=== PATIENT | male | born 1960 | race Caucasian/White ===

== ENCOUNTER 2019-03-12 14:28 | Emergency (ER) | payer BC ==
[~2019-03-12] VITALS: Ht 167.6 cm; Wt 72.3 kg
[2019-03-12 14:31] VITALS: Ht 167.6 cm; Wt 72.3 kg
[2019-03-12] MEDS ORDERED: VERAPAMIL HCL40 MG (14:32)
[2019-03-12 15:02] LABS: BASOPHILS 0.2 % (0-2); EOSINOPHILS 0.7 % (0-7); HEMATOCRIT 40.8 % (42.0-54.0); HEMOGLOBIN 14.3 g/dL (13.5-17.5); IMMATURE GRANULOCYTES 0.7 % (0-5); LYMPHOCYTES 20.6 % (15-50); MCH 31.6 pg (26.0-34.0); MCV 90.3 fL (80.0-100.0); NEUTROPHILS 68.8 % (40-80); PLATELET COUNT 244 10x3/uL (130-400); RBC 4.52 10x6/uL (4.20-6.10); RDW 13.4 % (11.5-14.5); WBC 6.1 10x3/uL (4.8-10.8)
[2019-03-12 15:10] LABS: APTT 29.6 SECONDS (22.8-39.4); INR 0.99 (0.85-1.17); PROTIME 12.6 SECONDS (11.6-15.0)
[2019-03-12 15:22] LABS: ALBUMIN 3.8 g/dL (3.4-5.0); ALKALINE PHOSPHATASE 73 U/L (46-116); ALT (SGPT) 19 U/L (10-68); BILIRUBIN - TOTAL 0.28 mg/dL (0.2-1.3); CALC OSMOLALITY 283 mosm/kg (275-300); CALCIUM 8.3 mg/dL (8.5-10.1); CARBON DIOXIDE 24.3 mmol/L (21.0-32.0); CHLORIDE - SERUM 107 mmol/L (98-107); CREATININE - SERUM 1.3 mg/dL (0.6-1.3); GLUCOSE 99 mg/dL (74-106); POTASSIUM - SERUM 3.4 mmol/L (3.5-5.1); PROTEIN - SERUM 7.6 g/dL (6.4-8.2); SODIUM 141 mmol/L (136-145); UREA NITROGEN 22 mg/dL (7-18); eGFR NON AFRICAN AMERICAN 60 mL/min (90-120)
[2019-03-12 15:33] LABS: CKMB 1.2 U/L (0.0-3.6); CREATINE KINASE 117 UL (21-232); MAGNESIUM - SERUM 1.9 mg/dL (1.8-2.4)
[2019-03-12 15:35] LABS: TROPONIN-I < 0.017 ng/mL (0.000-0.060)
[2019-03-12 19:40] VITALS: BP 181/103
== END 2019-03-12 19:40 | disposition home or self-care (01) ==
LOC: D.ER 14:28
PROVIDERS: Family Medicine
DX: R06.09 Other forms of dyspnea (principal)

== ENCOUNTER → 2019-04-05 09:55 | Outpatient (CLI) | payer BC ==
[2019-03-12 14:31] VITALS: BMI 25.7
[~2019-04-05 09:55] MED LIST: BAYER CHEWABLE81 MG PO; CALAN SR180 MG PO; PLAVIX75 MG PO; PRAVACHOL40 MG PO; VERAPAMIL HCL40 MG
[2019-04-17 13:10] VITALS: BMI 25.8
--- NOTE | 2019-04-18 11:29 | ST ---
PATIENT:DONNA VASQUEZ JR MEDICAL RECORD: [id number] SEX: M LOCATION:[facility] ORDER #: ADMISSION DATE: 04/05/19 AGE OF PATIENT: 58 REFERRING PHYSICIAN: INTERPRETING PHYSICIAN: THOMAS HALL MD DATE OF SERVICE: 04/05/2019 Exercise Stress Test INDICATIONS: Angina. He was exercised on standard Scot protocol for 6 minutes achieving greater than 85% target heart rate response with shortness of breath, angina and significant ST depression in stage II. OVERALL IMPRESSION: This is an abnormal nuclear stress test positive for inducible ischemia by symptomatology and EKG criteria. Most likely, there is hemodynamically significant coronary artery disease present. TRANSINT:[id number] Voice Confirmation ID: [id number] DOCUMENT ID: [id number] THOMAS HALL MD at 1129 CC: [id number] DICTATION DATE: 04/06/19 0945 PRINTING ROLLER POLISHER: 04/06/19 2354 DEP CLI 04/05/19 [address] [address] [place] [address]
== END | disposition home or self-care (01) ==
LOC: D.HCCARDIO 09:55
PROVIDERS: ATTEND Internal Medicine Interventional Cardiology
DX: I20.9 Angina pectoris, unspecified (principal)

== ENCOUNTER 2019-04-17 09:02 | Outpatient (CLI) | payer BC ==
[~2019-04-17] VITALS: Ht 167.6 cm; Wt 72.7 kg
--- NOTE | ~2019-04-17 | HEMODYNAMI ---
PATIENT:DONNA VASQUEZ JR MEDICAL RECORD: [id number] : 56 LOCATION:[facility] ADMISSION DATE: 04/17/19 Generatedon:04/17/201912:27 Patient name: DONNA VASQUEZ Patient #: [id number] SSN: : 1960 Date of study: 04/17/2019 Page: Of Hemodynamic Procedure Report Patient Data Patient Demographics Procedure consent was obtained First Name: DONNA Gender: Male Last Name: PEDRO Suffix: Patient #: [id number] : 1960 Age: 58 year(s) Accession #: Race: Unknown [id number] Additional ID: [id number] Contact details Address: [address] [place] [address] State: [place] City: [place] Zip code: [address] Past Medical History Allergies: No known allergies Admission Admission Data Admission Date: 04/17/2019 Admission Time: 9:02 Arrival Date: 04/17/2019 Arrival Time: 0:00 Height (in.): 65.75 BSA: 1.82 (m2) Height (cm.): 167 BMI: 26.18 (kg/m2) Weight (lbs.): 160.94 Weight (kg.): 73 Lab Results Lab Result Date: 04/17/2019 Lab Result Time: 0:00 Biochemistry Name Units Result Min Max BUN mg/dl 24 --(----)-* 7 18 Creatinine mg/dl 1.3 --(---*)-- 0.6 1.3 eGFR ml/min 60 *-(----)-- 90 120 NONAFRICAN CBC Name Units Result Min Max Hematocrit % 40.5 -*(----)-- 42 54 Hemoglobin g/dl 14.3 --(*---)-- 13.5 17.5 Procedure Procedure Types Cath Procedure Diagnostic Procedure [facility] w/Coronaries PCI Procedure Coronary Stent Coronary Stent Initial Procedure Description Procedure Date Procedure Date: 04/17/2019 Procedure Start Time: 12:06 Procedure End Time: 12:25 Procedure Staff Name Function Oleg Herzog MD Performing Physician Ciera Barrett RT Monitor Trang Rosado RT Scrub [place] Rob RN Nurse Dajuan Capellan RN Pediatric Physical Therapy Assistant Procedure Data Cath Procedure Fluoroscopy Diagnostic fluoroscopy Total fluoroscopy Time: 3.3 time: 3.3 min min Diagnostic fluoroscopy Total fluoroscopy dose: 487 dose: 487 mGy mGy Contrast Material Contrast Material Type Amount (ml) Isovue 300 79 Entry Location Entry Primary Successful Side Size Upsize Upsize Entry Closure Cooper ccessful Closure Location (Fr) 1 (Fr) 2 (Fr) Remarks Device Remarks Radial Right 6 Fr Mechanical artery Short Compression Estimated blood loss: 10 ml Diagnostic catheters Device Type Used For End Catheter Placement DIAGNOSTIC [place] 110cm 5 Procedure Fr catheter ([id number]) Procedure Complications No complications Procedure Medications Medication Administration Route Dosage 0.9% NaCl I.V. 100 ml/hr Oxygen etCO2 Nasal cannula 2 l/min Heparin Flush Bag added to field 2 bags (1000units/500ml NS) Lidocaine 2% added to field 20 Radial Cocktail added to field 1 syringe (Verapamil 2mg/Nitro 400mcg/Heparin 1500units) Radial Cocktail I.A. 1 syringe (Verapamil 2mg/Nitro 400mcg/Heparin 1500units) Heparin Bolus I.V. 4000 units Integrilin (Bolus I.V. 6.8 ml 2mg/ml) Integrilin (Bolus wasted 3.2 ml 2mg/ml) Plavix P.O. 600 mg Hemodynamics Rest BSA: 1.82 (m2) HGB: 14.3 (g/dl) O2 Consumption: Estimated: 203.91 (ml/min) O2 Co nsumption indexed: Estimated:112.04 (ml/min/m) Heart Rate: 56 (bpm) Snapshots Pre Cath Intra NCS Post Cath Vital Signs Time Heart Resp SPO2 etCO2 NIBP Rhythm Pain Sedation Rate (ipm) (%) (mmHg) (mmHg) Status Level (bpm) 11:57:47 59 17 95 13.5 133/85(97) NSR 0 (11) 10(A) , No pain 12:02:01 58 12 94 38.4 121/76(90) NSR 0 (11) 10(A) , No pain 12:06:11 53 15 92 41.4 132/73(85) NSR 0 (11) 10(A) , No pain 12:10:29 57 15 94 28.6 113/63(81) NSR 0 (11) 9(A) , No pain 12:14:39 52 13 92 0 111/62(83) NSR 0 (11) 9(A) , No pain 12:18:45 52 16 95 32.4 111/73(91) NSR 0 (11) 10(A) , No pain 12:23:44 48 15 98 32.4 Measuring NSR 0 (11) 10(A) , No pain 12:23:50 48 16 96 27.1 130/72(94) NSR 0 (11) 10(A) , No pain Medications Time Medication Route Dose Verified Delivered Reason Not es Effectiveness by by 12:01:08 0.9% NaCl I.V. 100 [place] Per physician ml/hr Darron Rob RN RN 12:01:19 Oxygen etCO2 2 l/min [place] for low 02 sats Nasal Darron Rob cannula RN RN 12:01:29 Heparin Flush added 2 bags [place] used for Bag to Darron Rob procedure (1000units/500ml field RN RN NS) 12:01:39 Lidocaine 2% added 20ml [place] for local to vial Darron Rob anesthetic RN RN 12:01:52 Radial Cocktail added 1 [place] used for (Verapamil to syringe Darron Rob procedure 2mg/Nitro field RN RN 400mcg/Heparin 1500units) 12:08:28 Radial Cocktail I.A. 1 [place] Oleg for (Verapamil syringe Darron Herzog MD vasodilation 2mg/Nitro RN 400mcg/Heparin 1500units) 12:15:23 Heparin Bolus I.V. 4000 [place] for units Darron Rob anticoagulation RN RN 12:16:53 Integrilin I.V. 6.8 ml [place] for (Bolus 2mg/ml) Darron Rob antiplatelet RN RN therapy 12:17:04 Integrilin wasted 3.2 ml [place] to sharp's (Bolus 2mg/ml) Darron Rob RN RN 12:19:47 Plavix P.O. 600 mg [place] for Darron Rob antiplatelet RN RN therapy Procedure Log Time Note 11:39:04 Signed procedure consent form obtained from patient. 11:39:06 Procedure Status Elective Heart Cath (OP). 11:39:08 Time tracking: Regular hours (M-F 7:00 - 5:00) 11:39:12 Plan of Care:Hemodynamics will remain stable., Cardiac rhythm will remain stable., Comfort level will be maintained., Respiratory function will remain adequate., Patient/ family verbilizes understanding of procedure., Procedure tolerated without complication., Recovers from procedure without complications.. 11:39:33 H&P Date Dictated: 03/29/2019 Within 30 days and on chart., H&P Addendum completed by physician on day of procedure. (MUST COMPLETE FOR ALL OUTPATIENTS). 11:40:10 Dajuan Capellan RN sent for patient. Start room use. 11:41:51 Patient allergic to No known allergies 11:43:43 Lab Result : BUN 24 mg/dl 11:43:43 Lab Result : eGFR NONAFRICAN 60 ml/min 11:43:43 Lab Result : Creatinine 1.3 mg/dl 11:43:43 Lab Result : Hemoglobin 14.3 g/dl 11:43:43 Lab Result : Hematocrit 40.5 % 11:43:55 Patient Weight : 160.94 lbs 11:44:00 Patient Height : 65.75 inches 11:44:05 Arrival Date: 04/17/2019 12:00:00 AM 11:47:04 Patient received from Pre/Post Procedure Room to CCL 1 Alert and oriented. Tansferred to table in Supine position. 11:47:05 Warm blankets applied, and esme hugger turned on for patient comfort. 11:47:06 Correct patient and procedure confirmed by team. 11:47:06 ECG and BP/O2 sat monitors applied to patient. 11:56:29 Rhythm: sinus bradycardia 11:56:41 Vital chart was started 11:56:43 Full Disclosure recording started 11:56:44 Baseline sample Acquired. 11:56:47 Pre-procedure instructions explained to patient. 11:56:47 Pre-op teaching completed and patient verbalized understanding. 11:56:48 Family in patients room. 11:56:50 Patient NPO since Midnight. 11:56:52 Is patient on blood thinner?No 11:56:54 Is the patient allergic to Iodine/contrast media? No. 11:56:56 Patient diabetic? No. 11:56:59 Previous problem with sedation/anesthesia? No ? 11:57:00 Snore? Yes 11:57:01 Sleep apnea? No 11:57:02 Deviated septum? No 11:57:03 Opens mouth fully? Yes 11:57:05 Sticks out tongue? Yes 11:57:37 Airway obstruction? No ? 11:57:38 Dentures? No ? 11:57:40 Modified Jun's test Ulnar < 7 seconds 11:57:42 Patient pain scale 0/10 ?. 11:57:46 IV patent on arrival in left hand with 0.9% NaCl at [facility]. 11:57:50 Lab results completed and on chart. 11:57:53 Right Radial & Right Groin area was prepped with chlora-prep and draped in sterile fashion 11:57:55 Alarms reviewed by R. N. 11:57:55 Sharps counted by scrub and verified by R.N. 12:01:08 0.9% NaCl 100 ml/hr I.V. was administered by [place] Rob RN; Per physician; 12:01:19 Oxygen 2 l/min etCO2 Nasal cannula was administered by [place] Rob RN; for low 02 sats; 12:01:29 Heparin Flush Bag (1000units/500ml NS) 2 bags added to field was administered by [place] Rob RN; used for procedure; 12:01:39 Lidocaine 2% 20ml vial added to field was administered by [place] Rob RN; for local anesthetic; 12:01:52 Radial Cocktail (Verapamil 2mg/Nitro 400mcg/Heparin 1500units) 1 syringe added to field was administered by [place] Rob RN; used for procedure; 12:02:41 --------ALL STOP TIME OUT------ 12:02:41 Final Timeout: patient, procedure, and site verified with staff and physician. All members of the team are in agreement. 12:02:42 Right Radial & Right Groin site verified by team. 12:02:45 Fire Safety Assessment: A--An alcohol-based skin anteseptic being used preoperatively., C--Open oxygen or nitrous oxide is being used., D--An ESU, laser, or fiber-optic light is being used. 12:02:56 Physical assessment completed. ASA score P 2 - A patient with mild systemic disease as per Oleg Herzog MD. 12:03:01 2) 60-89 Mildly reduced kidney function, and other findings (as for stage 1) point to kidney disease. 12:03:05 Maximum allowable contrast dose (3.7 X eGFR X 0.75)167 ml. 12:03:12 Sedation plan: IV Moderate Sedation Medication:Versed, Fentanyl 12:05:08 Zero performed for pressure channel P1 12:05:17 Procedure started. 12:06:08 Local anesthetic to right radial artery with Lidocaine 2% by Oleg Herzog MD.INITIAL ACCESS ONLY 12:06:37 Use device set Radial Dx or PCI 12:06:38 ACIST Syringe (92294) opened to sterile field. 12:06:39 Bag Decanter (2002S) opened to sterile field. 12:06:39 ACIST Hand Control (98446) opened to sterile field. 12:06:40 ACIST Manifold (22692) opened to sterile field. 12:06:40 Tegaderm 4 x 4 (1626W) opened to sterile field. 12:06:42 Medline Cath Pack ([id number]) opened to sterile field. 12:06:43 MBrace Wrist Support ([id number]) opened to sterile field. 12:06:44 EMERALD Guide Wire (848-813) opened to sterile field. 12:06:45 SHEATH 6FR RAIN (5586173) opened to sterile field. 12:06:58 A 6 Fr Short sheath was inserted into the Right Radial artery 12:08:13 A DIAGNOSTIC [place] 110cm 5 Fr catheter (386190) was advanced over the wire and used for Procedure. 12:08:28 Radial Cocktail (Verapamil 2mg/Nitro 400mcg/Heparin 1500units) 1 syringe I.A. was administered by Oleg Herzog MD; for vasodilation; 12:08:34 LV gram done using BURGESS 12:08:37 Injector settings: Ml/sec: 5, Volume: 15, 12:09:08 EF : 40 % 12:10:30 LCA angiography performed. 12:11:09 RCA angiography performed. 12:11:10 Catheter exchanged over wire. 12:12:15 INFLATOR Merit BasixCompak (FM3803) opened to sterile field. 12:12:15 CHOICE PT Extra Support 182cm wire ([id number]) opened to sterile field. 12:12:44 GUIDE 6FR AR 2.0 SH catheter ([id number]) opened to sterile field. 12:14:28 Zero performed for pressure channel P1 12:15:23 Heparin Bolus 4000 units I.V. was administered by [place] Rob RN; for anticoagulation; 12:15:40 6 Fr AR 2 SH guide catheter was inserted over the wire 12:15:42 Pre PCI Site: [place] pRCA has 90-95% stenosis. 12:16:16 CHOICE ES 182 wire advanced. 12:16:53 Integrilin (Bolus 2mg/ml) 6.8 ml I.V. was administered by [place] Rob RN; for antiplatelet therapy; 12:17:04 Integrilin (Bolus 2mg/ml) 3.2 ml wasted was administered by [place] Rob RN; to sharp's; 12:17:25 Wire advanced across lesion. 12:18:23 Place stent Inflation Number: 1 A KIKA RX 2.5 x 15 stent ([id number]) was prepped and advanced across the Prox RCA . The stent was deployed at 15 BEAN for 0:00 (min:sec) . 12:18:43 Stent catheter was removed intact over wire. 12:18:44 Wire removed. 12:18:44 Guide catheter removed. 12:18:55 ZEPHYR REGULAR TR BAND (181406) opened to sterile field. 12:19:27 Procedure ended.(Physican Out) 12:19:47 Plavix 600 mg P.O. was administered by [place] Rob RN; for antiplatelet therapy; 12:20:51 Sheath removed intact; hemostasis achieved with Mechanical Compression to the Right Radial artery. 12:20:56 Fluoroscopy time 03.30 minutes. 12:21:01 Flurop Dose total: 487 12:21:01 Fluoroscopy dose: 487 mGy 12:21:08 Dose Area Product 12106 mGy/cm. 12:21:12 Contrast amount:Isovue 300 79ml. 12:21:15 Maximum allowable dose exceeded? No. 12:21:16 Sharps counted by scrub and verified by R.N. 12:21:17 [place] band inflated with 11cc of air. 12:21:22 Post-procedure physical assessment completed. ASA score P 2 - A patient with mild systemic disease as per Oleg Herzog MD. 12::25 Post procedure rhythm: sinus bradycardia 12::27 Estimated blood loss: 10 ml 12::29 Post procedure instruction explained to patient.Patient verbalizes understanding. 12::29 Patient needs reinforcement of post procedure teaching. 12:21:51 Procedure type changed to Cath procedure, Diagnostic procedure, LHC, C w/Coronaries, PCI procedure, Coronary Stent, Coronary Stent Initial 12:22:11 Procedure and supply charges have been captured, reviewed, submitted and are correct. 12::13 Procedure Complication : No complications 12:25: Vital chart was stopped 12:: See physician's report for complete and final results. 12:: Report given to [facility]. 12::19 Patient transfered to [facility] with Bed. 12:: Procedure ended. 12:: Full Disclosure recording stopped 12:: End room use (Document Last) Intervention Summary Intervention Notes Time ActionType Lesion and Equipment Used Action# Pressure Duration Attributes 12:18:23 Place stent Prox RCA KIKA RX 2.5 x 1 15 00:00 15 stent ([id number]) Device Usage Item Name Manufacture Quantity Catalog Number Hospital Part Current M inimal Lot# / Charge Number Stock Stock Serial# Code ACIST Syringe Acist 1 65555 459479 650315 885271 2 0 (41721) Medical Systems Inc Bag Decanter Microtek 1 2001S 396471 52011 035070 5 (2001S) Medical Inc. ACIST Hand Acist 1 81583 576724 576995 720232 5 Control Medical (66533) Systems Inc ACIST Manifold Acist 1 85863 815471 458506 470593 5 (31126) Medical Systems Inc Tegaderm 4 x 4 3M 1 1626W 327620 319041 195299 5 (1626W) Medline Cath Medline 1 [id number] 152959 23235 810327 5 Pack ([id number]) MBrace Wrist Advanced 1 140-0250-00 607555 42472 373702 5 Support Vascular (450783666) Dynamics EMERALD Guide Cardinal 1 502-455 634977 332054 358723 5 Wire (502455) Health SHEATH 6FR Cardinal 1 8931942 918870 7370611 164526 5 RAIN (8831298) Health DIAGNOSTIC Terumo 1 40-5017 137298 734966 293889 5 [place] 110cm 5 Fr catheter (940163) INFLATOR Merit Merit 1 EE4022 801412 281179 429614 1 5 [facility] Medical (SX3411) CHOICE PT [place] 1 [id number] 107597 545484 183801 5 Extra Support Scientific 182cm wire ([id number]) GUIDE 6FR AR Medtronic 1 [id number] 848252 22240 709345 1 2.0 SH catheter ([id number]) KIKA RX 2.5 x Medtronic 1 [id number] 722969 8907546 441246 5 [id number] 15 stent ([id number]) ZEPHYR REGULAR Cardinal 1 469644 740743 7285256 318191 5 [facility] (909152) Signature Audit [place] Stage Time Signature Unsigned Intra-Procedure 04/17/2019 Ciera Barrett 12:27:22 PM RT(R) Signatures Performing Physician : Signature : Oleg Herzog MD Date : Time : Monitor : Ciera Barrett Signature : RT Date : Time : Nurse : [place] Rob Signature : RN Date : Time : [facility] [address] [place] [id number]
--- NOTE | ~2019-04-17 | HEMODYNAMI ---
PATIENT:DONNA VASQUEZ JR MEDICAL RECORD: [id number] : 56 LOCATION:[facility] D.[address] [facility]# [id number] ADMISSION DATE: 04/17/19 Generatedon:04/18/201911:37 Patient name: DONNA VASQUEZ Patient #: [id number] SSN: : 1960 Date of study: 04/18/2019 Page: Of Hemodynamic Procedure Report Patient Data Patient Demographics Procedure consent was obtained First Name: DONNA Gender: Male Last Name: PEDRO Suffix: Patient #: [id number] : 1960 Age: 58 year(s) Accession #: Race: Unknown [id number] Additional ID: [id number] Contact details [address]: [address] [place] [address] State: [place] City: [place] Zip code: [address] Past Medical History Allergies: No known allergies Admission Admission Data Admission Date: 04/17/2019 Admission Time: 9:02 Arrival Date: 04/17/2019 Arrival Time: 0:00 Admit Source: Other Insurance Payor: Private Room #: [id number] health insurance [facility] #: [id number] Height (in.): 65.75 BSA: 1.82 (m2) Height (cm.): 167 BMI: 26.18 (kg/m2) Weight (lbs.): 160.94 Weight (kg.): 73 Lab Results Lab Result Date: 04/17/2019 Lab Result Time: 0:00 Biochemistry Name Units Result Min Max BUN mg/dl 24 --(----)-* 7 18 Creatinine mg/dl 1.3 --(---*)-- 0.6 1.3 eGFR ml/min 60 *-(----)-- 90 120 NONAFRICAN CBC Name Units Result Min Max Hematocrit % 40.5 -*(----)-- 42 54 Hemoglobin g/dl 14.3 --(*---)-- 13.5 17.5 Procedure Procedure Types Cath Procedure Diagnostic Procedure Sedation Charges Moderate Sedation up to 15 minutes PCI Procedure Coronary Stent Coronary Stent Initial x2 Coronary Stent Additional Procedure Description Procedure Date Procedure Date: 04/18/2019 Procedure Start Time: 11:12 Procedure End Time: 11:33 Procedure Staff Name Function Oleg Herzog MD Performing Physician Ezequiel Frey RT Monitor Dang Painting RT Scrub Afia Bullard RN Nurse Concepcion Jeter RN Ornamental Plasterer Helper Procedure Data Cath Procedure Fluoroscopy Diagnostic fluoroscopy Total fluoroscopy Time: 4.9 time: 4.9 min min Diagnostic fluoroscopy Total fluoroscopy dose: 471 dose: 471 mGy mGy Contrast Material Contrast Material Type Amount (ml) Isovue 300 126 Entry Location Entry Primary Successful Side Size Upsize Upsize Entry Closure Succes sful Closure Location (Fr) 1 (Fr) 2 (Fr) Remarks Device Remarks Femoral Right 6 Fr Exoseal artery Short Estimated blood loss: 10 ml Procedure Complications No complications Procedure Medications Medication Administration Route Dosage 0.9% NaCl I.V. 100 ml/hr Oxygen etCO2 Nasal cannula 2 l/min Lidocaine 2% added to field 20 Heparin Flush Bag added to field 2 bags (1000units/500ml NS) Versed I.V. 2 mg Fentanyl I.V. 100 mcg Heparin Bolus I.V. 4000 units Versed I.V. 1 mg Fentanyl I.V. 50 mcg Hemodynamics Rest BSA: 1.82 (m2) HGB: 14.3 (g/dl) O2 Consumption: Estimated: 208.31 (ml/min) O2 Co nsumption indexed: Estimated:114.46 (ml/min/m) Heart Rate: 62 (bpm) Snapshots Pre Cath Intra NCS Post Cath Vital Signs Time Heart Resp SPO2 etCO2 NIBP (mmHg) Rhythm Pain Sedation Rate (ipm) (%) (mmHg) Status Level (bpm) 10:38:59 53 16 100 29.4 Measuring NSR 0 (11) 10(A) , No pain 10:39:15 56 32 100 27.9 183/102(163) NSR 0 (11) 10(A) , No pain 10:43:31 59 21 99 10.5 166/96(143) NSR 0 (11) 10(A) , No pain 10:47:55 55 19 99 30.9 168/80(147) NSR 0 (11) 10(A) , No pain 10:52:13 55 19 99 26.3 157/83(129) NSR 0 (11) 10(A) , No pain 10:56:32 62 16 99 18.1 158/93(122) NSR 0 (11) 10(A) , No pain 11:00:50 58 15 99 30.9 151/96(130) NSR 0 (11) 10(A) , No pain 11:05:04 65 10 97 27.1 154/100(135) NSR 0 (11) 10(A) , No pain 11:09:17 75 12 98 14.3 156/95(132) NSR 0 (11) 9(A) , No pain 11:13:38 68 12 98 26.3 145/91(124) NSR 0 (11) 9(A) , No pain 11:17:52 79 19 95 20.3 122/96(120) NSR 0 (11) 9(A) , No pain 11:21:59 73 13 96 36.1 132/86(120) NSR 0 (11) 9(A) , No pain 11:26:09 74 23 97 24.8 153/94(132) NSR 0 (11) 10(A) , No pain 11:30:21 72 11 97 28.6 154/94(137) NSR 0 (11) 10(A) , No pain 11:34:33 75 11 97 27.1 146/93(136) NSR 0 (11) 10(A) , No pain Medications Time Medication Route Dose Verified Delivered Reason Notes Effectiveness by by 10:38:09 0.9% NaCl I.V. 100 Oleg Concepcion ml/hr Mino Jeter RN 10:38:17 Oxygen etCO2 2 Oleg Concepcion used for Nasal l/min Mino Jeter procedure cannula RN 10:38:22 Lidocaine 2% added 20ml Oleg Dejesus for local to vial Mino Herzog MD anesthetic field 10:38:26 Heparin Flush added 2 Oleg Dejesus used for Bag to bags Mino Herzog MD procedure (1000units/500ml field NS) 11:04:08 Versed I.V. 2 mg Oleg Oreilly for sedation Mino Bullard RN 11:04:14 Fentanyl I.V. 100 Oleg Oreilly for sedation mcg Mino Bullard RN 11:14:25 Heparin Bolus I.V. 4000 Oleg Buffie for verif ied units Mino Bullard RN anticoagulation with dr herzog 11:16:29 Versed I.V. 1 mg Oleg Oreilly for sedation Mino Bullard RN 11:16:36 Fentanyl I.V. 50 Oleg Oreilly for sedation mcg Mino Bullard RN Procedure Log Time Note 10:10:07 Concepcion Jeter RN sent for patient. Start room use. 10:28:34 Informed consent obtained and on chart 10:28:55 Patient Height : 65.75 inches 10:28:55 Patient Weight : 160.94 lbs 10:30:42 Admit Source: Other 10:31:00 ACC Patient presents with Unstable Angina CCS Anginal Class 4--Inability to carry out any physical activity w/o angina. Angina may occur at rest. 10:31:03 Procedure Status PCI. 10:31:12 Time tracking: Regular hours (M-F 7:00 - 5:00) 10:31:15 Plan of Care:Hemodynamics will remain stable., Cardiac rhythm will remain stable., Comfort level will be maintained., Respiratory function will remain adequate., Patient/ family verbilizes understanding of procedure., Procedure tolerated without complication., Recovers from procedure without complications.. 10:31:20 Patient received from Pre/Post Procedure Room to CCL 2 Alert and oriented. Tansferred to table in Supine position. 10:31:20 Warm blankets applied, and esme hugger turned on for patient comfort. 10:31:21 Correct patient and procedure confirmed by team. 10:31:24 ECG and BP/O2 sat monitors applied to patient. 10:31:33 H&P Date Dictated: 04/17/2019 Within 30 days and on chart.. 10:37:10 Vital chart was started 10:37:11 Baseline sample Acquired. 10:37:14 Rhythm: sinus rhythm 10:37:15 Full Disclosure recording started 10:37:17 Pre-procedure instructions explained to patient. 10:37:17 Pre-op teaching completed and patient verbalized understanding. 10:37:18 Family in waiting room. 10:38:09 0.9% NaCl 100 ml/hr I.V. was administered by Concepcion Jeter RN; ; 10:38:17 Oxygen 2 l/min etCO2 Nasal cannula was administered by Concepcion Jeter RN; used for procedure; 10:38:22 Lidocaine 2% 20ml vial added to field was administered by Oleg Herzog MD; for local anesthetic; 10:38:26 Heparin Flush Bag (1000units/500ml NS) 2 bags added to field was administered by Oleg Herzog MD; used for procedure; 10:45:12 Patient NPO since Midnight. 10:45:19 Patient allergic to No known allergies 10:45:21 Is the patient allergic to Iodine/contrast media? No. 10:45:23 Is patient on blood thinner?Yes 10:45:25 ACC The patient was administered the following blood thiners within the last 24 hours: ACCAspirin, ACCPlavix 10:45:27 Patient diabetic? No. 10:45:29 Previous problem with sedation/anesthesia? No ? 10:45:31 Snore? Yes 10:45:32 Sleep apnea? No 10:45:33 Deviated septum? No 10:45:34 Opens mouth fully? Yes 10:45:34 Sticks out tongue? Yes 10:45:36 Airway obstruction? No ? 10:45:38 Dentures? No ? 10:45:50 Pre procedure: right dorsailis pedis pulse 2+ Normal; easily identifiable; not easily obliterated 10:45:53 Patient pain scale 0/10 ?. 10:46:01 IV patent on arrival in left forearm with 0.9% NaCl at [facility]. 10:46:07 Lab results completed and on chart. 10:46:12 Right groin area was prepped with chlora-prep and draped in sterile fashion 10:46:12 Alarms reviewed by R. N. 10:46:13 Sharps counted by scrub and verified by R.N. 10:46:16 ACIST Syringe (98206) opened to sterile field. 10:46:17 Bag Decanter () opened to sterile field. 10:46:17 Medline Cath Pack ([id number]) opened to sterile field. 10:46:18 ACIST Hand Control (28642) opened to sterile field. 10:46:19 ACIST Manifold (71915) opened to sterile field. 10:46:20 EMERALD Guide Wire (042-038) opened to sterile field. 10:46:22 Tegaderm 4 x 4 (1626W) opened to sterile field. 10:46:36 CHOICE PT Extra Support 182cm wire ([id number]) opened to sterile field. 10:46:36 INFLATOR Merit BasixCompak (JS4349) opened to sterile field. 10:46:37 SHEATH 6FR Hawthorne (MLE785) opened to sterile field. 10:48:02 Insurance Payor : Private health insurance 10:49:20 Zero performed for pressure channel P1 11:03:25 Physician arrived 11::25 --------ALL STOP TIME OUT------ 11:03:26 Final Timeout: patient, procedure, and site verified with staff and physician. All members of the team are in agreement. 11:03:30 Right groin site verified by team. 11:03:34 Fire Safety Assessment: A--An alcohol-based skin anteseptic being used preoperatively., C--Open oxygen or nitrous oxide is being used., D--An ESU, laser, or fiber-optic light is being used. 11:03:36 Physical assessment completed. ASA score P 2 - A patient with mild systemic disease as per Oleg Herzog MD. 11:03:48 2) 60-89 Mildly reduced kidney function, and other findings (as for stage 1) point to kidney disease. 11:03:51 Maximum allowable contrast dose (3.7 X eGFR X 0.75)167 ml. 11:03:55 Sedation plan: IV Moderate Sedation Medication:Versed, Fentanyl 11:04:08 Versed 2 mg I.V. was administered by Afia Bullard RN; for sedation; 11:04:14 Fentanyl 100 mcg I.V. was administered by Afia Bullard RN; for sedation; 11:12:40 Procedure started. 11:12:47 Local anesthetic to right femoral artery with Lidocaine 2% by Oleg Herzog MD.INITIAL ACCESS ONLY 11:12:55 A 6 Fr Short sheath was inserted into the Right Femoral artery 11:13:17 GUIDE 6FR XBLAD 4.0 catheter ([id number]) opened to sterile field. 11:13:47 6 Fr XBLAD 4 guide catheter was inserted over the wire 11:14:25 Heparin Bolus 4000 units I.V. was administered by Afia Bullard RN; for anticoagulation; verified with dr herzog 11:14:27 CHOICE PT ES wire advanced. 11:15:23 Wire advanced across lesion. 11:16:29 Versed 1 mg I.V. was administered by Afia Bullard RN; for sedation; 11:16:29 ACC Pre-intervention DASHA Flow is 3. 11:16:34 Pre PCI Site: [place] pLAD has 95% stenosis. 11:16:36 Fentanyl 50 mcg I.V. was administered by Afia Bullard RN; for sedation; 11:16:38 Inflate balloon Inflation number: 1 A EUPHORA 2.5 x 15 Balloon ([id number]) was prepped and advanced across the Prox LAD , then inflated to 13 BEAN for 0:10 (min:sec) . 11:16:43 Inflation number: 2 The EUPHORA 2.5 x 15 Balloon ([id number]) was reinflated across the Prox LAD , to 13 BEAN for 0:10 (min:sec) . 11:16:53 Balloon removed over the wire. 11:18:13 Place stent Inflation Number: 3 A KIKA RX 2.5 x 18 stent ([id number]) was prepped and advanced across the Prox LAD . The stent was deployed at 19 BEAN for 0:10 (min:sec) . 11:19:15 Stent catheter was removed intact over wire. 11:19:18 Wire redirected to CX. 11:19:21 Wire advanced across lesion. 11:21:06 Inflation number: 1 The EUPHORA 2.5 x 15 Balloon ([id number]) was reinflated across the 1st Ob Zulay , to 23 BEAN for 0:10 (min:sec) . 11:21:25 Pre PCI Site: [place] OM1 has 95% stenosis. 11:21:29 ACC Pre-intervention DASHA Flow is 3. 11:21:32 Balloon removed over the wire. 11:21:37 Post PCI Site: [place] pLAD has 0% stenosis. 11:21:39 ACC Post-intervention DASHA Flow is 3. 11:22:53 Place stent Inflation Number: 2 A KIKA RX 3.0 x 15 stent ([id number]) was prepped and advanced across the 1st Ob [place] . The stent was deployed at 13 BEAN for 0:10 (min:sec) . 11:23:00 Stent catheter was removed intact over wire. 11:24:02 Pre PCI Site: [place] pCirc has 95% stenosis. 11:24:05 ACC Pre-intervention DASHA Flow is 3. 11:24:12 Post PCI Site: [place] OM1 has 0% stenosis. 11:24:15 ACC Post-intervention DASHA Flow is 3. 11:24:34 Place stent Inflation Number: 1 A KIKA RX 3.5 x 15 stent ([id number]) was prepped and advanced across the Prox CX . The stent was deployed at 13 BEAN for 0:10 (min:sec) . 11:25:29 ACT drawn and resulted at 232 seconds. (normal therapeutic range 180-240 seconds). 11:27:06 Stent catheter was removed intact over wire. 11:27:07 Wire removed. 11:27:07 Guide catheter removed. 11:27:13 EXOSEAL 6Fr (EX600) opened to sterile field. 11:27:59 Sheath removed intact; hemostasis achieved with Exoseal to the Right Femoral artery. 11:28:00 Procedure ended.(Physican Out) 11:29:56 Fluoroscopy time 04.90 minutes. 11:30:03 Flurop Dose total: 471 11:30:03 Fluoroscopy dose: 471 mGy 11:30:13 Dose Area Product 03482 mGy/cm. 11:30:52 Contrast amount:Isovue 300 126ml. 11:30:53 Maximum allowable dose exceeded? No. 11:30:54 Sharps counted by scrub and verified by R.N. 11:32:23 Insertion/operative site no bleeding no hematoma. 11:32:27 Post-op/insertion site Right Femoral artery dressed using a 4 x 4 and Tegaderm. 11:32:30 Post right femoral artery:stable, soft, clean and dry 11:32:31 Post Procedure Pulses reassessed and unchanged 11:32:33 Post-procedure physical assessment completed. ASA score P 2 - A patient with mild systemic disease as per Oleg Herzog MD. 11:32:40 Post procedure rhythm: unchanged. 11:32:42 Estimated blood loss: 10 ml 11:32:44 Post procedure instruction explained to patient.Patient verbalizes understanding. 11:32:44 Patient needs reinforcement of post procedure teaching. 11:33:12 Procedure type changed to Cath procedure, Diagnostic procedure, Sedation Charges, Moderate Sedation up to 15 minutes, PCI procedure, Coronary Stent, Coronary Stent Initial x2, Coronary Stent Additional 11:33:41 Procedure and supply charges have been captured, reviewed, submitted and are correct. 11:33:43 Procedure Complication : No complications 11:33:45 Vital chart was stopped 11:33:45 See physician's report for complete and final results. 11:33:47 Report given to Pre/Post Procedure Room. 11:33:50 Patient transfered to Pre/Post Procedure Room with Stretcher. 11:33:52 Procedure ended. 11:33:52 Full Disclosure recording stopped 11:33:59 ACC-PCI Only Patient was given prescriptions, or instructed by Oleg Herzog MD to start/continue the following medications upon discharge: Aspirin, Plavix 11:34:01 End room use (Document Last) Intervention Summary Intervention Notes Time ActionType Lesion and Equipment Used Action# Pressure Duration Attributes 11:16:38 Inflate Prox LAD EUPHORA 2.5 x 1 13 00:10 balloon 15 Balloon ([id number]) 11:16:43 Reinflate Prox LAD EUPHORA 2.5 x 2 13 00:10 balloon 15 Balloon ([id number]) 11:18:13 Place stent Prox LAD KIKA RX 2.5 x 3 19 00:10 18 stent ([id number]) 11:21:06 Reinflate 1st Ob [place]ul[place] EUPHORA 2.5 x 1 23 00:10 balloon 15 Balloon ([id number]) 11:22:53 Place stent 1st Ob [place]ul[place] KIKA RX 3.0 x 2 13 00:10 15 stent ([id number]) 11:24:34 Place stent Prox CX KIKA RX 3.5 x 1 13 00:10 15 stent ([id number]) Device Usage Item Name Manufacture Quantity Catalog Number Hospital Part Current M inimal Lot# / Charge Number Stock Stock Serial# Code ACIST Syringe Acist 1 74528 457677 027580 005719 2 0 (22801) Medical Systems Inc Bag Decanter Microtek 1 971487 71152 210839 5 () Medical Inc. Medline Cath Medline 1 [id number] 096542 43102 820665 5 Pack ([id number]) ACIST Hand Acist 1 10355 744526 666075 946205 5 Control Medical (88489) Systems Inc ACIST Manifold Acist 1 81700 149485 438572 096766 5 (14875) Medical Systems Inc EMERALD Guide Cardinal 1 502-455 960875 612006 959847 5 Wire (502-455) Health Tegaderm 4 x 4 3M 1 1626W 143240 887745 652464 5 (1626W) CHOICE PT Indio 1 [id number] 748523 570721 836045 5 Extra Support Scientific 182cm wire ([id number]) INFLATOR Merit Merit 1 WK1479 298328 969684 778343 1 5 [employer]ver Goats Media (PV0827) SHEATH 6FR Terumo 1 BEQ163 822757 288174 944840 4 0 Hawthorne (ABI754) GUIDE 6FR Cardinal 1 86579423 414808 294721 326192 3 XBLAD 4.0 Health catheter (20304879) EUPHORA 2.5 x Medtronic 1 [id number] 123344 597066 596387 5 [id number] 15 Balloon ([id number]) KIKA RX 2.5 x Medtronic 1 [id number] 532293 3068085 219142 5 [id number] 18 stent ([id number]) KIKA RX 3.0 x Medtronic 1 [id number] 901928 1164561 120003 5 [id number] 15 stent ([id number]) KIKA RX 3.5 x Medtronic 1 [id number] 209233 7396409 981890 5 [id number] 15 stent ([id number]) EXOSEAL 6Fr Cardinal 1 EX600 855677 415070 742671 1 0 (EX600) Health Signature Audit Bonnie Stage Time Signature Unsigned Intra-Procedure 04/18/2019 Ezequiel Frey 11:37:31 AM RT(R) Signatures Performing Physician : Signature : Oleg Herzog MD Date : Time : Monitor : Ezequiel Frey RT Signature : Date : Time : Nurse : Buffie Bullard RN Signature : Date : Time : [address] [place] [address]
[~2019-04-17 09:02] MED LIST changes: -BAYER CHEWABLE81 MG PO; -CALAN SR180 MG PO; -PLAVIX75 MG PO; -PRAVACHOL40 MG PO
[2019-04-17] MEDS ORDERED: CALAN SR180 MG PO (09:29)
[2019-04-17 09:38] VITALS: BP 155/95; BMI 25.8
[2019-04-17 09:52] LABS: BASOPHILS 0.2 % (0-2); EOSINOPHILS 2.1 % (0-7); HEMATOCRIT 40.5 % (42.0-54.0); HEMOGLOBIN 14.3 g/dL (13.5-17.5); IMMATURE GRANULOCYTES 0.6 % (0-5); LYMPHOCYTES 23.8 % (15-50); MCH 32.1 pg (26.0-34.0); MCHC 35.3 g/dL (31.0-37.0); MCV 90.8 fL (80.0-100.0); MONOCYTES 8.3 % (2-11); PLATELET COUNT 227 10x3/uL (130-400); RBC 4.46 10x6/uL (4.20-6.10); RDW 13.4 % (11.5-14.5); WBC 5.2 10x3/uL (4.8-10.8)
[2019-04-17 10:06] LABS: ANION GAP 9.9 mmol/L (8-16); CALCIUM 8.2 mg/dL (8.5-10.1); CHOL - HDL RATIO 3.5 ratio (2.3-4.9); CREATININE - SERUM 1.3 mg/dL (0.6-1.3); LDL-HDL RATIO 2.3 ratio (1.5-3.5); POTASSIUM - SERUM 3.9 mmol/L (3.5-5.1)
--- NOTE | 2019-04-17 12:56 | NUR ---
TRANSFER FROM OXIDE FURNACE TENDER. VS WNL. RIGHT WRIST STABEL WITH Z BAND INTACT. WILL MONITOR.
[2019-04-17 13:02] VITALS: BP 127/76
[2019-04-17 13:10] VITALS: BP 127/76; Ht 167.6 cm; Wt 72.7 kg
--- NOTE | 2019-04-17 16:59 | NUR ---
tr band dcd without bleeding or hematoma noted. will monitor.
[2019-04-17 17:11] VITALS: BP 139/78
--- NOTE | 2019-04-17 19:07 | NUR ---
RECEIVED BEDSIDE REPORT. PATIENT IS ALERT AND ORIENTED, RESTING COMFORTABLY IN BED. RESPIRATIONS ARE EVEN AND UNLABORED. NO S/S OF DISTRESS. NO C/O PAIN. FAMILY AND FRIENDS AT BEDSIDE. CALL LIGHT WITHIN REACH. DENIES NEEDS. WILL CPOC.
[2019-04-17 20:48] VITALS: BP 145/81
[2019-04-18 00:47] VITALS: BP 166/93
[2019-04-18 05:13] VITALS: BP 156/63
[2019-04-18 09:59] VITALS: BP 168/99
--- NOTE | 2019-04-18 10:30 | NUR ---
PRE-OPS GIVEN. TO COAL DRIER OPERATOR BY BED.
[2019-04-18] MEDS ORDERED: PLAVIX75 MG PO (11:38)
[2019-04-18] MEDS ORDERED: BAYER CHEWABLE81 MG PO (11:40)
--- NOTE | 2019-04-18 11:45 | NUR ---
PT RECEIVED VIA STRETCHER FROM STILL CLEANER POST ANGIOGRAM. PT SLEEPING BUT VERBALLY AROUSABLE. PT DENIES PAIN OR DISCOMFORT. IV INFUSING VIA L ARM PER ORDERS. R GROIN W 6FR EXOCELE, DRESSING CDI NO BLEEDING OR HEMATOMA NOTED. LEG PINK AND WARM, AND PEDAL PULSES PALPABLE. HR NSR RATE 66, BP 159/95, O2 SAT 98 ON 2L/NC OF O2. PT INSTRUCTED TO KEEP HEAD ON PILLOW AND R LEG STRAIGHT, HE VERBALIZED UNDERSTANDING. CALL LIGHT IN REACH
[2019-04-18] MEDS ORDERED: PRAVACHOL40 MG PO (11:52)
--- NOTE | 2019-04-18 12:15 | NUR ---
PT RESTING W FAMILY AT BS. R GROIN DRESSING CDI NO BLEEDING OR HEMATOMA NOTED. LEG PINK AND WARM, PEDAL PULSES PALPABLE. HR 61, BP 165/103, O2 SAT 98 ON 2L/NC. CALL LIGHT IN REACH
--- NOTE | 2019-04-18 12:25 | NUR ---
DR HALL NOTIFIED OF PT'S BP. ORDER RECEIVED.
--- NOTE | 2019-04-18 12:58 | NUR ---
VERAPAMIL 180MG PO GIVEN FOR BP. DR HALL AT BEDSIDE, DISCUSSED W PT AND FAMILY PLAN OF CARE AND PROCEDURE RESULTS. GROIN SOFT, DRESSING REMAINS CDI NO BLEEDING OR HEMATOMA NOTED. LEG PINK AND WARM, PEDAL PULSES PALPABLE. CALL LIGHT IN REACH.
--- NOTE | 2019-04-18 13:33 | NUR ---
PT AWAKE VISITING W FAMILY. DENIES PAIN OR NEEDS AT THIS TIME. R GROIN SOFT, DRESSING CDI NO BLEEDING OR HEMATOMA NOTED. LEG PINK, PEDAL PULSES PALPABLE. MARIBELL 159/96, HR 65.
--- NOTE | 2019-04-18 14:00 | NUR ---
R GROIN SOFT, DRESSING REMAINS CDI NO BLEEDING OR HEMATOMA NOTED. PT DENIES PAIN OR DISCOMFORT. FAMILY REMAINS AT BEDSIDE.
--- NOTE | 2019-04-18 14:32 | OP ---
PATIENT NAME: DONNA VASQUEZ JR MEDICAL RECORD: [id number] :56 LOCATION:[facility] ADMISSION DATE: SURGEON: THOMAS HALL MD DATE OF OPERATION: 04/17/2019 PROCEDURES: 1. PTCA stent RCA. 2. Left heart catheterization. 3. Selective coronary angiography. 4. Left ventriculogram. INDICATION: Angina, coronary artery disease. DESCRIPTION OF PROCEDURE: After informed consent was obtained and after a detailed description of risks, benefits as well as alternative therapies, the patient elected to proceed with angiogram and angioplasty. The right radial area was prepped and draped in normal sterile fashion. Right radial artery was cannulated via modified Seldinger technique with placement of 6-Yakut sheath. All catheters exchanged through this sheath. FINDINGS: Left ventriculogram was performed in standard 30-degree BURGESS view, reveals global hypokinesis, ejection fraction 40%. SELECTIVE CORONARY ANGIOGRAPHY: 1. Left main showed no significant angiographic disease. 2. Left anterior descending is 90% and 95% stenosed in the mid vessel. 3. Left circumflex has 90% to 95% stenosis proximally and in the mid vessel. 4. Right coronary artery is 90% and 95% stenosed proximally. PTCA STENT OF THE RCA: The stent used was a 2.5 x 15 mm [place]. Result was 0% residual stenosis. OVERALL IMPRESSION: Successful percutaneous transluminal coronary angioplasty stent of the right coronary artery going from 95% initial stenosis to 0% residual. PLAN: For PTCA stent of the LAD and circumflex in the a.m. TRANSINT:[id number] Voice Confirmation ID: [id number] DOCUMENT ID: [id number] THOMAS HALL MD at 1432 CC: [id number] DICTATION DATE: 04/17/19 1223 LAW FIRM PARTNER: 04/17/19 1337 REG [facility] [address] [place] [address]
--- NOTE | 2019-04-18 14:36 | NUR ---
GROIN REMAINS SOFT, DRESSING CDI NO BLEEDING OR HEMATOMA NOTED. LEG REMAINS WARM AND PINK, PEDAL PULSES PALPABLE. HOB ELEVATED SLIGHTLY, URINAL GIVEN BUT PT UNABLE TO VOID MUCH STATES HE NEEDS TO STAND UP. EXPLAINED HE CANT GET UP YET. SANDWICH TRAY SERVED, AT BEDSIDE.
--- NOTE | 2019-04-18 15:05 | NUR ---
PT DOING WELL, STILL UNABLE TO VOID IN URINAL. GROIN SOFT, DRESSING CDI NO BLEEDING OR SWELLING NOTED. VSS. LEG PINK AND WARM AND PEDAL PULSES PALPATED. REMAINS AT BEDSIDE, TOLERATED SANDWICH AND DRINK W/O NAUSEA. CALL LIGHT IN REACH
--- NOTE | 2019-04-18 15:20 | NUR ---
DISCHARGE INSTRUCTIONS REVIEWED W PT AND , EXPLAINED IMPORTANCE OF GETTING PRESCRIPTIONS FILLED AND TAKING THEM DAILY. BOTH VERBALIZED UNDERSTANDING. IV REMOVED W CATH INTACT. MONITORS AND O2 REMOVED. 1525 PT UP TO DRESS, AMBULATED TO BR VOIDING W/O DIFFICULITY.
--- NOTE | 2019-04-18 15:37 | NUR ---
PT DISCHARGED VIA WC TO WAITING IN PRIVATE VEHICLE. PT HAS ALL BELONGINGS AND DISCHARGE PAPERS.
--- NOTE | 2019-04-19 14:31 | OP ---
PATIENT NAME: DONNA VASQUEZ JR MEDICAL RECORD: [id number] :56 LOCATION:[facility] ADMISSION DATE: SURGEON: THOMAS HALL MD DATE OF OPERATION: 04/18/2019 DATE OF SERVICE: 04/18/2019 PROCEDURES: 1. PTCA stent LAD. 2. PTCA stent left circumflex. 3. PTCA stent first obtuse marginal. 4. Selective coronary angiography. INDICATION: Angina and coronary artery disease. DESCRIPTION OF PROCEDURE: After informed consent was obtained and after a detailed explanation of risks, benefits the patient elected to proceed with angiogram and angioplasty. FINDINGS: The left anterior descending has 90-95% stenosis proximally. This was addressed with a 2.5 x 18 mm [place]onal[place] taken to 19 atmospheres. Result was 0% residual stenosis. PTCA STENT OF THE LEFT CIRCUMFLEX AND OBTUSE MARGINAL: The obtuse marginal was 99% stenosed, left circumflex has 80% and 90% stenosis. OM was addressed with a 3.0 x 15 mm [place], the circumflex itself with a 3.5 x 15 mm [place]. Result was 0% residual. IMPRESSION: Successful percutaneous transluminal coronary angioplasty stent of the left anterior descending and circumflex, both going from 90% to 95% initial stenosis to 0% residual. TRANSINT:[id number] Voice Confirmation ID: [id number] DOCUMENT ID: [id number] THOMAS HALL MD at 1431 CC: [id number] DICTATION DATE: 04/18/19 1133 BAKER: 04/18/19 1454 DEP CLI 04/18/19 [place] [id number]
--- NOTE | 2019-04-19 14:31 | DS ---
PATIENT:DONNA VASQUEZ JR :56 MEDICAL RECORD: [id number] DISCHARGE SUMMARY ADMISSION DATE: 04/17/19 DISCHARGE DATE: 04/18/19 DISCHARGE DIAGNOSES: 1. Angina. 2. Coronary artery disease. 3. PTCA and stent of RCA, LAD, left circumflex this admission. HOSPITAL COURSE: This is a gentleman who presents with unstable anginal symptomatology, found to have 3-vessel coronary artery disease, underwent successful PTCA and stent of all 3 vessels. Discharged home with the addition of aspirin, Plavix, Pravachol to his medical regimen. Follow up with [facility] in 1 month. TRANSINT:[id number] Voice Confirmation ID: [id number] DOCUMENT ID: [id number] THOMAS HALL MD at 1431 CC: [id number] DICTATION DATE: 04/18/19 1131 MECHANICAL ENGINEERING DIRECTOR: 04/19/19 0221 DEP CLI 04/18/19 [id number] [place] [address]
== END 2019-04-18 15:30 | disposition home or self-care (01) ==
LOC: D.M2 09:02 → D.CATH 09:02 → D.M2 12:36 → D.CLR 04-18 11:45 → D.CATH 04-18 15:30
PROVIDERS: ATTEND Internal Medicine Interventional Cardiology
DX: I25.119 Atherosclerotic heart disease of native coronary artery with unspecified angina pectoris (principal); Z01.812 Encounter for preprocedural laboratory examination

== ENCOUNTER → 2019-07-12 18:48 | Outpatient (CLI) | payer BC ==
[2019-04-17 13:10] VITALS: BMI 25.8
[~2019-07-12 18:48] MED LIST changes: +BAYER CHEWABLE81 MG PO; +CALAN SR180 MG PO; +PLAVIX75 MG PO; +PRAVACHOL40 MG PO
[2019-07-12 19:34] LABS: CHOL - HDL RATIO 3.1 ratio (2.3-4.9)
== END | disposition home or self-care (01) ==
LOC: D.LABREF 18:48
PROVIDERS: ATTEND Internal Medicine Interventional Cardiology
DX: I10 Essential (primary) hypertension (principal)

== ENCOUNTER → 2019-10-16 18:16 | Outpatient (CLI) | payer BC ==
[2019-04-17 13:10] VITALS: BMI 25.8
[2019-10-16 18:38] LABS: CHOL - HDL RATIO 3.7 ratio (2.3-4.9); LDL-HDL RATIO 2.5 ratio (1.5-3.5)
== END | disposition home or self-care (01) ==
LOC: D.LABREF 18:16
PROVIDERS: ATTEND Internal Medicine Interventional Cardiology
DX: E78.5 Hyperlipidemia, unspecified (principal)

== ENCOUNTER → 2019-11-14 11:21 | Outpatient (CLI) | payer BC ==
[2019-04-17 13:10] VITALS: BMI 25.8
--- NOTE | ~2019-11-14 | EC ---
PATIENT:DONNA VASQUEZ JR DATE OF SERVICE: 11/14/19 SEX: M MEDICAL RECORD: [id number] DATE OF : 56 LOCATION:[facility] AGE OF PATIENT: 58 ADMISSION DATE: 11/14/19 REFERRING PHYSICIAN: INTERPRETING PHYSICIAN: THOMAS HERZOG MD ECHOCARDIOGRAM REPORT ECHO CHARGES 4 ECHO COMPLETE Date: 11/14/19 CLINICAL DIAGNOSIS: HTN/CAD ECHOCARDIOGRAPHIC MEASUREMENTS (adult normal given) AC root (d.<3.7cm) 3.9 cm LV Septum d (<1.2 cm> 1.5 cm Valve Excursion 2.0 cm LV Septum (systole) 1.7 cm Left Atria (s.<4.0cm> 3.6 cm LVPW d(<1.2cm) 1.7 cm RV (d.<2.3cm) 4.1 cm LVPW (sytole) 1.8 cm LV diastole(<5.6CM) 5.0 cm MV E-F(>70mm/sec) cm LV systole 3.4 cm LVOT Diameter 1.8 cm MV exc.(>10mm) 1.4 cm Est.ejection fraction (50-75%) % DOPPLER: LVIT cm/sec A 94.0 cm/sec E 71.0 cm/sec LA cm/sec RVSP 23 mmHg LVOT 103 cm/sec AOP1/2T m/s Asc. Ao 159 cm/sec RVOT 90 cm/sec RA cm/sec PA 123 cm/sec AV Gradient Peak 10.13mmHg AV Mean 5.22 mmHg AV Area 1.8 cm MV Gradient Peak 4.92 mmHg MV Mean 1.55 mmHg MV Area cm COMMENTS: Rack Pusher: Hayde DE LEON Sort Worker: 1 Dr. Herzog TAPE# PACS Pericardial Effusion N DATE OF SERVICE: ECHOCARDIOGRAM FINDINGS: 1. Left ventricular chamber size is within normal limits. Left ventricular systolic function is normal at 55% to 60%. 2. Left atrium is within normal limits. Right atrium and right ventricle chamber sizes are mildly dilated. 3. Valvular structures have normal structure and motion. ECHOCARDIOGRAM REPORT [id number] DONNA VASQUEZ JR 4. Doppler interrogation reveals mild mitral regurgitation, trace tricuspid regurgitation, no other valvular insufficiency or stenosis. Pulmonary systolic pressure is estimated at 23 mmHg. 5. No evidence of pericardial effusion or left ventricular thrombus. TRANSINT:[id number] Voice Confirmation ID: [id number] DOCUMENT ID: [id number] THOMAS HERZOG MD CC: [id number] DICTATION DATE: 11/14/19 1153 ADMINISTRATIVE SALES ASSISTANT: 11/14/19 1203 [facility] [address] [id number]
== END | disposition home or self-care (01) ==
LOC: D.HCCECHO 11:21
PROVIDERS: ATTEND Internal Medicine Interventional Cardiology
DX: I10 Essential (primary) hypertension (principal)

== ENCOUNTER → 2020-01-15 20:34 | Outpatient (CLI) | payer BC ==
[2019-04-17 13:10] VITALS: BMI 25.8
[2020-01-15 20:59] LABS: CHOL - HDL RATIO 2.6 ratio (2.3-4.9); LDL-HDL RATIO 1.5 ratio (1.5-3.5)
== END | disposition home or self-care (01) ==
LOC: D.LABREF 20:34
PROVIDERS: ATTEND Internal Medicine Interventional Cardiology
DX: E78.5 Hyperlipidemia, unspecified (principal)